=== PATIENT | female | born 1970 | race Asian ===

== ENCOUNTER → 2017-05-08 | Outpatient (CLI) | payer OTHER ==
[~2017-05-08] MED LIST: ADULT LOW DOSE81 MG PO; LIPITOR10 MG PO; METOPROLOL TART25 MG PERTUBE
== END ==
LOC: M.RAD 10:56
DX: Z12.31 Encounter for screening mammogram for malignant neoplasm of breast (principal)

== ENCOUNTER → 2018-04-09 | Outpatient (CLI) | payer OTHER | LOC: M.NUC 07:45 | DX: R10.9 Unspecified abdominal pain (principal); R17 Unspecified jaundice ==

== ENCOUNTER → 2018-05-16 | Outpatient (CLI) | payer OTHER | LOC: M.CT 13:00 | DX: Z13.6 Encounter for screening for cardiovascular disorders (principal) ==

== ENCOUNTER → 2018-05-16 | Outpatient (CLI) | payer OTHER | LOC: M.RAD 13:29 | DX: Z12.31 Encounter for screening mammogram for malignant neoplasm of breast (principal) ==

== ENCOUNTER → 2018-05-22 | Outpatient (CLI) | payer OTHER | LOC: M.RAD 05-20 13:08 | DX: N63.12 Unspecified lump in the right breast, upper inner quadrant (principal) ==

== ENCOUNTER 2018-08-12 13:23 | Inpatient (IN) | payer OTHER ==
[2018-08-12] VITALS (12 sets, daily range): BP systolic 75–114; BP diastolic 37–86
[~2018-08-12] VITALS: Ht 157.5 cm; Wt 108.0 kg
[2018-08-12] MEDS ORDERED: TOPROL XL25 MG PO (13:38)
[2018-08-12] MEDS ORDERED: COZAAR 25 MG TA25 M1 PO (13:39)
[2018-08-12 13:58] LABS: ABSOLUTE BASOPHILS 0.1 thou/uL (0.0-0.2); ABSOLUTE EOSINOPHILS 0.4 thou/uL (0.0-0.7); ABSOLUTE LYMPHOCYTES 2.6 thou/uL (0.8-5.3); ABSOLUTE MONOCYTES 0.7 thou/uL (0.0-1.2); BASOPHILS 1.2 %; EOSINOPHILS 4.5 %; HEMATOCRIT 35.7 % (37.0-47.0); HEMOGLOBIN 11.1 gm/dL (12.0-15.0); LYMPHOCYTES 29.7 %; MCH 22.6 pg (26.0-34.0); MCHC 31.1 g/dL (28.0-37.0); MCV 72.6 fL (80.0-100.0); MONOCYTES 7.9 %; MPV 7.6 fl. (7.2-11.1); NUCLEATED RBCS 0 /100WBC; PLATELET COUNT* 494 thou/uL (150-400); POLYS 56.7 %; RBC 4.92 mil/uL (4.20-5.00); RDW-CV 17.6 % (10.5-14.5); WBC 8.8 thou/uL (4.0-11.0)
[2018-08-12 14:06] LABS: ANION GAP 12 mmol/L (7-16); BUN 13 mg/dL (7-18); CALCIUM 8.2 mg/dL (8.5-10.1); CHLORIDE 104 mmol/L (98-107); CO2 22 mmol/L (21-32); GLUCOSE 149 mg/dL (70-99); POTASSIUM 3.6 mmol/L (3.5-5.1); SODIUM 138 mmol/L (136-145)
[2018-08-12 14:08] LABS: APTT 27.1 Seconds (25.0-31.3); INR 1.1; PROTIME 11.2 Seconds (9.20-11.50)
[2018-08-12 14:18] LABS: ALBUMIN 3.1 g/dL (3.4-5.0); ALKALINE PHOSPHATASE 67 U/L (46-116); CK-MB MASS 0.7 ng/mL (<0.5-3.6); LIPASE 119 U/L (73-393); MAGNESIUM 1.8 mg/dL (1.8-2.4); NT-PRO BRAIN NAT PEPTIDE 850 pg/mL (<300); SGOT 58 U/L (15-37); SGPT 85 U/L (30-65); TOTAL BILIRUBIN 0.5 mg/dL (<0.1-1.0); TOTAL PROTEIN 7.8 g/dL (6.4-8.2); TROPONIN-I LEVEL <0.06 ng/mL (<0.06)
[2018-08-12 15:48] LABS: CLUMPED PLTS RARE; LARGE PLATELETS OCCASIONAL
[2018-08-12 15:49] LABS: HYPOCHROMASIA 2+
[2018-08-12 15:50] LABS: MICROCYTES 2+
[2018-08-12 15:51] LABS: ANISOCYTOSIS 1+; PLATELET ESTIMATE INCREASED
[2018-08-12] MEDS ORDERED: LOPRESSOR25 PO (18:12)
[2018-08-12] MEDS ORDERED: FOLGARD TABLET1 EAC1 PO (18:13)
--- NOTE | 2018-08-12 19:28 | NUR ---
PT ARRIVED TO ROOM 005 VIA CART FROM ED AT 1625. PT ASSESSMENT CHARTED IN ADMISSION HISTORY. NO COMPLAINTS OF PAIN. BP AND HR STABLE. NO COMPLAINTS.
[2018-08-13] VITALS (12 sets, daily range): BP systolic 94–154; BP diastolic 43–73
--- NOTE | 2018-08-13 03:28 | NUR ---
Pt pleasant and conversational. States she is anxious about stress test and wants to "get it over with." BP 90s-100s/50s-60s. Denies chest pain or discomfort. Up to BSC to void with SBA. Denies dizziness with activity. Will continue to monitor.
[2018-08-13 05:08] LABS: ALBUMIN 2.8 g/dL (3.4-5.0); CALCIUM 7.6 mg/dL (8.5-10.1); CREATININE 0.7 mg/dL (0.6-1.3); POTASSIUM 4.1 mmol/L (3.5-5.1); TOTAL BILIRUBIN 0.3 mg/dL (<0.1-1.0); TOTAL PROTEIN 6.9 g/dL (6.4-8.2)
--- NOTE | 2018-08-13 11:18 | NUR ---
PATIENT DENIES DISTRESS OR SOA, AWAITING STRESS TEST.
--- NOTE | 2018-08-13 13:37 | NUR ---
PATIENT TO STRESS TEST DENIES DISTRESS.
--- NOTE | 2018-08-13 15:23 | CARDNUC ---
[place] [address] CARDIAC NUCLEAR IMAGING REPORT Name: ANDREAS ALLEN Room: [address] IN [facility]#: [id number] Admission: 08/12/18 Attend Phys: Yuko Crowe, Discharge: Date of : 68 Date of Service: 08/13/18 1523 Report #: [id number] THIS REPORT FOR: //name// APPROVED REPORT Imaging Protocol: Stress Tc-99m/Rest Tc-99m 2 days Study performed: 08/12/2018 18:15:00 Indication: Dyspnea, tachycardia, lightheaded, blurred vision Patient Location: In-Patient Room #: 005 Stress Tech: Ariela Márquez Stress Nurse: Valentine MARTIN Tech:TRACEY Castellanos Ht: 5 ft 2 in Wt: 238 lbs BSA: 2.06 m2 HR: 75 bpm BP: 143/57 mmHg BMI: 43.52 Rhythm: NSR Medical History Allergies: Amoxicillin Cardiac Risk Factors: FHX of CAD Pharmacologic Stress Pharmacologic stress test was performed by injecting Regadenoson 0.4 mg IV push over 10-15 seconds immediately followed by the intravenous injection of 32.0 mCi of Tc-99m Sestamibi. Time of stress injection: 1355 Date: 08/13/2018 Administration Route: IV Administration Site: Right Hand Gated Stress SPECT was performed 40 minutes after stress injection. The images were gated to evaluate regional wall motion and calculate left ventricular ejection fraction. Prone imaging was performed. Stress Test Details Stress Test: Pharmacologic stress testing performed using 0.4 mg of regadenoson per 5 mL given IV over 10 seconds. Reason for pharmacologic stress test: physical limitation. HR Max Heart Rate (APMHR): 171 bpm Resting HR: 75 bpm Target HR (85% APMHR): 145 bpm Max HR Achieved: 108 [place] [address] CARDIAC NUCLEAR IMAGING REPORT Name: ANDREAS ALLEN Room: [address]#: [id number] Admission: 08/12/18 Attend Phys: Yuko Crowe, Discharge: Date of : 68 Date of Service: 08/13/18 1523 Report #: [id number] % of APMHR: 63 Recovery HR: 98 bpm HR response to stress: Normal HR response to stress BP Resting BP: 143/57 mmHg Max BP: 178/76 mmHg Recovery BP: 162/69 mmHg BP response to stress: Normal blood pressure response to stress. ECG Resting ECG: Sinus Rhythm Stress ECG: Sinus Rhythm ST Change: None Arrhythmia: None Recovery ECG: Sinus Rhythm Recovery ST Change: None Recovery Arrhythmia: None Clinical Reason for Termination: Completed protocol Stress Symptoms: chest pressure The patient noted mild chest pressure with Lexiscan infusion that was felt to be medication effect in light of nuclear medicine findings. Stress ECG Conclusion The baseline 12-lead EKG shows sinus rhythm with no significant ST or T wave abnormality. EKGs obtained during and post Lexiscan show sinus rhythm and sinus tachycardia with no significant ST or T wave changes when compared to baseline. There were no stress-induced arrhythmias. Study Quality Study: Good Artifact: No artifact Study Data Post stress, the left ventricular ejection was 83%.. Perfusion Post stress myocardial perfusion images show uniform uptake of the radioisotope throughout the myocardium. There were no defects to suggest [place] [address] CARDIAC NUCLEAR IMAGING REPORT Name: VIKYABISherif ABBEY TORRESIE Sarbjit Room: [address]#: [id number] Admission: 08/12/18 Attend Phys: Yuko Crowe, Discharge: Date of : 68 Date of Service: 08/13/18 1523 Report #: [id number] Wall Motion Normal left ventricular wall motion. Nuclear Conclusion ECG Findings: negative for ischemia Clinical Findings: negative for ischemia Nuclear Findings: negative for ischemia Exercise Capacity: not assessed Left Ventricular Function: normal Risk Study: low Post stress perfusion images show uniform uptake of the radioisotope throughout the myocardium without defect. Global LV systolic function was normal on gated studies. This is a low risk study. <Conclusion> The baseline 12-lead EKG shows sinus rhythm with no significant ST or T wave abnormality. EKGs obtained during and post Lexiscan show sinus rhythm and sinus tachycardia with no significant ST or T wave changes when compared to baseline. There were no stress-induced arrhythmias. <ELECTRONICALLY SIGNED> By: Ryan Cook MD, [facility] 08/13/18 1523 1523 1523 Ryan Cook MD, FACC /INF
--- NOTE | 2018-08-13 15:36 | EKG ---
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
--- NOTE | 2018-08-13 15:36 | EKG ---
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1970 Requested By: Juan Miguel Avilez Order Number: [id number] Reading MD: Ryan Cook Measurements Intervals [place] Rate: 152 P: 0 ND: 268 QRS: 66 QRSD: 80 T: -16 QT: 294 QTc: 468 Interpretive Statements Supraventricular tachycardia Borderline repolarization abnormality Baseline wander in lead(s) II,V1 Compared to ECG 07/18/2015 00:09:57 Patient now in supraventricular tachycardia Electronically Signed On 08-13-2018 15:36:12 CDT by Ryan Cook [email or web address] <ELECTRONICALLY SIGNED> By: Ryan Cook MD, FACC 08/13/18 1536 1330 1330 Ryan Cook MD, [facility] /EPI
[2018-08-13] MEDS ORDERED: FLECAINIDE ACET50 M1 PO (15:53)
--- NOTE | 2018-08-13 16:53 | NUR ---
PATIENT TO DISCHARGE HOME INSTRUCTIONS GIVEN.
[2018-08-14 09:07] LABS: HEPATITIS B SURFACE AG Negative (Negative)
== END 2018-08-13 17:00 | disposition home or self-care (01) | DRG 309 ==
LOC: M.ERS 13:23 → M.TBA-ER 15:12 → M.ICU 15:36
PROVIDERS: Emergency Medicine; Internal Medicine Nephrology; ADMIT Internal Medicine
DX: I47.1 Supraventricular tachycardia (principal); Z68.41 Body mass index [BMI] 40.0-44.9, adult; I95.9 Hypotension, unspecified; E66.01 Morbid (severe) obesity due to excess calories; I48.91 Unspecified atrial fibrillation; E78.5 Hyperlipidemia, unspecified; I10 Essential (primary) hypertension; Z79.82 Long term (current) use of aspirin; Z79.899 Other long term (current) drug therapy

== ENCOUNTER → 2019-10-09 | Outpatient (CLI) | payer OTHER ==
[~2019-10-09] MED LIST changes: +COZAAR 25 MG TA25 M1 PO; +FLECAINIDE ACET50 M1 PO; +FOLGARD TABLET1 EAC1 PO; +LIORESAL 10 MG10 MG PO; +LOPRESSOR25 PO; +TOPROL XL25 MG PO; +TRAZODONE HCL50 MG PO
== END ==
LOC: M.RAD 12:56
PROVIDERS: ATTEND Family Medicine
DX: Z12.31 Encounter for screening mammogram for malignant neoplasm of breast (principal)

== ENCOUNTER → 2020-03-19 | Outpatient (CLI) | payer OTHER | LOC: M.ULTRA 07:10 | PROVIDERS: ATTEND Internal Medicine Gastroenterology | DX: R16.0 Hepatomegaly, not elsewhere classified (principal); M79.89 Other specified soft tissue disorders ==